=== PATIENT | male | born 1960 | race Caucasian/White ===

== ENCOUNTER 2025-01-21 05:29 | Emergency (ER) | payer OTHER, SELFPAY ==
[2025-01-21 05:30] VITALS: BP 188/114
[2025-01-21] MEDS: TYLENOL 1000 MG PO (05:47)
--- NOTE | 2025-01-21 05:48 | ED.GENMED ---
History of Present Illness
General
Chief Complaint: Head Injury
Source: patient
Exam Limitations: none
Time Seen by Provider: 01/21/25 05:34
Nursing documentation reviewed up to this point in time: agreed with
History of Present Illness
History of Present Illness:
64-year-old male limited past medical history --24 hours ago slipped getting out of the shower on some wet tile struck the top of his head no loss of consciousness since then has had some intermittent dizziness, photophobia felt nauseated this
morning, no prior head injuries initially had some neck pain which improved but no arm or leg weakness, no preceding chest pain or shortness of breath
Drinks alcohol socially not excess none recently
Past History
Past History
ED Past Medical History: None
ED Past Surgical History: None
Social History
Tobacco: Non-smoker
Alcohol: None
Drug: None
Personal:
Living: with family
Employment: Employed
Review of Systems
Review of Systems
All Other Systems: Not applicable
Respiratory: Denies trouble breathing
Cardiac: Denies palpitations
ABD/GI: Reports nausea; Denies vomiting
: Reports no symptoms
Musculoskeletal: Reports neck pain
Neurological: Reports dizzy; Denies headache
Endocrine: Reports no symptoms
Phy Exam
Physical Exam
Physical Exam:
Physical Exam
General: no apparent distress, not acutely ill
Neck: Midline trachea no midline posterior neck pain pupils round reactive
Heart: s1/s2 regular rate and rhythm, no murmur. equal radial pulses.
Lungs: no acute respiratory distress. clear bilaterally
Abdomen: Nontender
Neuro: alert and oriented. no focal neurological deficits
Skin: no rash
Psychiatric: well kept. interactive and cooperative
Extremities: Strong radial pulses, no signs of extremity trauma
Course
Orders/Labs/Results
Orders:
Orders
01/21/25 05:38
CT Cervical Spine W/o Iv Contr Urgent
Comment:
Reason For Exam: fall
CT Head W/o Iv Contrast Urgent
Comment:
Reason For Exam: fall
Cardiac Monitoring- Treatment ONCE
Acetaminophen [Tylenol] 1,000 mg PO NOW STA
Ondansetron Orally Disint [Zofran Odt (Orally Disintegrating)] 4 mg PO NOW STA
01/21/25 05:45
Acetaminophen [Tylenol] 1,000 mg .ROUTE .STK-MED ONE
01/21/25 05:46
Ondansetron Orally Disint [Zofran Odt (Orally Disintegrating)] 4 mg .ROUTE .STK-MED ONE
01/21/25 06:25
Electrocardiogram (*1) Urgent
Reason for Study: Other
Other Reason for Exam: trauma
Cardiac Monitoring- Treatment ONCE
EKG- Treatment ONCE
01/21/25 06:44
Alcohol Urgent
Complete Blood Count/With Diff Urgent
Comprehensive Metabolic Panel Urgent
Abnormal Lab Results
01/21/25
06:44
MCV 99.2 H fL
(80.0-94.0)
MCH 35.6 H pg
(27.0-31.0)
RDW 11.1 L %
(11.5-14.5)
Absolute Lymphs (auto) 1.1 L 10^3/uL
(1.2-3.4)
Absolute Monos (auto) 1.1 H 10^3/uL
(0.1-0.6)
Lymphocytes % 14.0 L %
(20.5-51.1)
Monocytes % 13.8 H %
(1.7-9.3)
Glucose 122 H mg/dl
(70-99)
01/21/25 06:44
01/21/25 06:44
Vital Signs
Initial and Last Documented VS:
Initial Vital Signs
Temp Pulse Resp BP Pulse Ox
98.1 F 104 20 188/114 97
01/21/25 05:30 01/21/25 05:30 01/21/25 05:30 01/21/25 05:30 01/21/25 05:30
Last Documented Vital Signs
Temp Pulse Resp BP Pulse Ox
98.1 F 81 9 156/96 97
01/21/25 05:30 01/21/25 07:15 01/21/25 07:15 01/21/25 07:15 01/21/25 07:15
MDM/Problems Addressed
Differential Diagnosis Includes:
Closed head injury subdural epidural traumatic subarachnoid postconcussive syndrome C-spine
MDM/Problems Addressed:
Head trauma nausea photophobia
Not intoxicated not anticoagulated
*Radiology
Radiology exam reviewed: radiology read reviewed
*Pulse Oximetry
Patient hypoxic: no
*[facility] Interpretation
Rate: normal
Interpretation: normal
Heart Rate: 78
Rhythm: sinus
*Critical Care Note
Total Time (30-74mins, 75-104mins- exclusive of procedures): 32
Update Note
Update Note:
Suspect close head injury with postconcussive symptoms, will check CT of the head cervical spine treat symptomatically
CT looks like intracerebral hemorrhage reviewed with radiology 2 subdural hematomas possibly 3
Patient is symptomatic will need to go to a trauma center
Patient prefers [place] will place a call
ED Attending Note
-
Portions of this chart may have been created with voice recognition software.� Occasional wrong word or��sound alike� substitutions may have occurred due to the inherent limitations of voice recognition software.
Discharge Plan
Departure
Patient Disposition: Acute Care Hospital
Date of Disposition: 01/21/25
Time of Disposition: 06:12
Patient with high blood pressure during this ER visit?: Yes
Condition: Serious
Covid-19: Not Applicable
Discharge Problem:
Head injury, Subdural hematoma, acute
Instructions: Concussion, Adult (DC), Minor Head Injury (DC)
Prescriptions:
New
ondansetron 4 mg tablet,disintegrating
4 mg PO Q8H PRN (Reason: nausea and vomiting) Qty: 14 0RF
Hospital Transfer
Other hospital: [facility]
I certify that the patient requires transfer: Yes
Discussed case with accepting physician: Yulissa
Reason for transfer: higher level of care, availability of service and specialties available
Interventions
Interventions:
*Risk Screen - Suicide Last Done: 01/21/25 05:57
*General Assessment Last Done: 01/21/25 05:53
*Neglect/Abuse Screening Last Done: 01/21/25 05:30
*ED- Fall Risk Assessment Last Done: 01/21/25 05:53
*ED COVID-19 Vaccine History Last Done: 01/21/25 05:53
*Nursing Disposition Last Done: 01/21/25 07:35
ED- Neurological Assessment Last Done: 01/21/25 05:53
ED-Skin Assessment Last Done: 01/21/25 05:53
Discharge Date and Time
Discharge Date/Time: 01/21/25 07:36
Print Language: SERBIAN
[2025-01-21] MEDS: ZOFRAN ODT (ORALLY DISINTEGRATING) 4 MG PO (05:49)
[2025-01-21 05:51] VITALS: BMI 27.7
[2025-01-21 05:52] VITALS: BP 161/92
[2025-01-21 06:30] VITALS: BP 158/102
[2025-01-21 06:32] VITALS: BP 158/102
[2025-01-21 07:00] LABS: % Basophils 0.5 % (0-2); % Eosinophils 1.6 % (0-6); % Immature Granulocytes 0.5 % (0-0.5); % Monocytes 13.8 % (1.7-9.3); % Neutrophils 69.6 % (42.2-75.2); Absolute Eosinophils 0.1 10^3/uL (0-0.7); Absolute Lymphocytes 1.1 10^3/uL (1.2-3.4); Absolute Monocytes 1.1 10^3/uL (0.1-0.6); Absolute Neutrophils 5.4 10^3/uL (1.4-6.5); Hematocrit 50.2 % (39.0-52.0); Mean Corp Hgb Conc. 35.9 g/dL (33.0-37.0); Mean Corpuscular Hgb 35.6 pg (27.0-31.0); Mean Corpuscular Volume 99.2 fL (80.0-94.0); Mean Platelet Volume 9.9 fL (7.4-10.4); Nucleated Red Blood Cells % 0 % (-); Platelet Count 149 10^3/uL (130-400); Red Blood Cell Count 5.06 10^6/uL (4.70-6.10); Red Cell Dist. Width 11.1 % (11.5-14.5); White Blood Cell Count 7.7 10^3/uL (4.8-10.8)
[2025-01-21 07:02] VITALS: BP 160/102
[2025-01-21 07:15] VITALS: BP 156/96
[2025-01-21 07:21] LABS: ALT (SGPT) 49 U/L (0-50); AST (SGOT) 47 U/L (17-59); Albumin 4.1 g/dl (3.5-5.0); Alkaline Phosphatase 113 U/L (38-126); Blood Urea Nitrogen 17 mg/dl (9-20); Calcium 9.6 mg/dl (8.4-10.2); Carbon Dioxide 26 mmol/L (22-30); Chloride 106 mmol/L (98-107); Estimated Creatinine Clearance 109 ml/min; Glucose 122 mg/dl (70-99); Potassium 4.8 mmol/L (3.5-5.1); Sodium 140 mmol/L (135-145); Total Bilirubin 1.3 mg/dl (0.2-1.3); Total Protein 7.1 g/dl (6.3-8.2); eGFR > 60.00
[2025-01-21 07:28] LABS: Alcohol None Detected
== END 2025-01-21 07:36 | disposition short-term general hospital (02) ==
LOC: EMR 05:29
PROVIDERS: EMERGENCY PHYSICIAN Emergency Medicine
DX: S06.5X0A Traumatic subdural hemorrhage without loss of consciousness, initial encounter (principal); W18.2XXA Fall in (into) shower or empty bathtub, initial encounter
CPT/HCPCS: 99291; 70450; 72125; 80053; 82077; 85025; 93005

== ENCOUNTER → 2025-02-04 08:00 | Outpatient (REF) | payer OTHER, SELFPAY | LOC: HWRAD 08:00 | PROVIDERS: ATTENDING PHYSICIAN Neurological Surgery; FAMILY PHYSICIAN Family Medicine | DX: S06.5X1A Traumatic subdural hemorrhage with loss of consciousness of 30 minutes or less, initial encounter (principal) | CPT/HCPCS: 70450 ==